=== PATIENT | female | born 1950 | race Caucasian/White ===

== ENCOUNTER 2018-06-06 21:55 | Emergency (ER) | payer MEDICARE, BC ==
--- NOTE | 2018-06-06 22:54 | EDM.PDOC ---
ED HPI GENERAL MEDICAL PROBLEM - General Chief Complaint: Upper Extremity Injury/Pain Stated Complaint: RT ARM PAIN Time Seen by Provider: 06/06/18 22:10 Source of Information: Reports: Patient History Limitations: Reports: No Limitations - History of Present Illness INITIAL COMMENTS - FREE TEXT/NARRATIVE: This pleasant 59-year-old woman was vacuuming and tripped over a vacuum and consequently traumatized her right elbow while she fell. Crepitance no difficulty flexing or extending her elbow or loss of sensation or change in sensation or hand wrist or butt presser. Chest significant past medical history of diabetes on metformin, hypertension uses verapamil, and kidney disease. 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: Reports: Cold Therapy - Related Data Allergies Allergy/AdvReac Type Severity Reaction Status Date / Time Opioids-Meperidine and Allergy Nausea Verified 06/06/18 22:06 Related varenicline [From Chantix] Allergy Delusions Verified 06/06/18 22:06 Past Medical History Musculoskeletal History: Reports: Osteoarthritis - Past Surgical History Musculoskeletal Surgical History: Reports: Knee Replacement Social & Family History - Family History Family Medical History: Noncontributory - Tobacco Use Smoking Status *Q: Former Smoker Years of Tobacco use: 48 Packs/Tins Daily: 1 Used Tobacco, but Quit: Yes Month/Year Tobacco Last Used: 09/22 Second Hand Smoke Exposure: No - Caffeine Use Caffeine Use: Reports: Coffee, Soda - Recreational Drug Use Recreational Drug Use: No Review of Systems - Review of Systems Review Of Systems: See Below Constitutional: Reports: No Symptoms Eyes: Reports: No Symptoms Ears: Reports: No Symptoms Nose: Reports: No Symptoms Mouth/Throat: Reports: No Symptoms Respiratory: Reports: No Symptoms Cardiovascular: Reports: No Symptoms GI/Abdominal: Reports: No Symptoms Genitourinary: Reports: No Symptoms, Other (H she has "kidney disease") Musculoskeletal: Reports: No Symptoms Skin: Reports: No Symptoms Neurological: Reports: No Symptoms Psychiatric: Reports: No Symptoms ED EXAM, GENERAL - Physical Exam Exam: See Below Free Text/Narrative:: Pleasant woman in minimal distress has mild soreness of right elbow Exam Limited By: No Limitations General Appearance: Alert, WD/WN, Mild Distress Eye Exam: Bilateral Eye: Normal Inspection Ears: Normal External Exam Nose: Normal Inspection Throat/Mouth: Normal Inspection Head: Atraumatic, Normocephalic Neck: Normal Inspection, Supple, Non-Tender Respiratory/Chest: No Respiratory Distress, Lungs Clear, Normal Breath Sounds, No Accessory Muscle Use, Chest Non-Tender Cardiovascular: Normal Peripheral Pulses Peripheral Pulses: 1+: Radial (L), Radial (R) (Good capillary fill right hand) GI/Abdominal: Normal Bowel Sounds, Soft, Non-Tender, No Organomegaly, No Distention (Female) Exam: Deferred Rectal (Female) Exam: Deferred Back Exam: Normal Inspection Extremities: Normal Inspection, Other (Right elbow mild tenderness olecranon no radial head tenderness no crepitus with flexion and extension, she can readily flex and extend her forearm at the elbow. With pronation shows has a slight click noted her elbow. The clinck does not cause pain in her elbow She has good dorsal flexion palmar flexion of her wrist. No compromised sensation right hand. Radial ulnar pulses brachial pulse are intact. No swelling the antecubital fossa or her no tenderness epicondyles medial or lateral) Neurological: Alert, Oriented, CN II-XII Intact, Normal Cognition, Normal Gait Psychiatric: Normal Affect, Normal Mood Skin Exam: Warm, Dry, Intact, Normal Color Lymphatic: No Adenopathy Course - Vital Signs Last Recorded V/S: Last Vital Signs Temp 36.9 C 06/06/18 22:08 Pulse 79 06/06/18 22:08 Resp 18 06/06/18 22:08 BP 146/60 H 06/06/18 22:08 Pulse Ox 96 06/06/18 22:08 - Orders/Labs/Meds Orders: Active Orders 24 hr Category Date Time Status Elbow Min 3V Rt [CR] Stat Exams 06/06/18 22:10 Taken Departure - Departure Time of Disposition: 22:45 (right elbow contusion from fall the elbow is without fracture or limitation of motion) Disposition: Home, Self-Care 01 Condition: Good Clinical Impression: Contusion of elbow, right Qualifiers: Encounter type: initial encounter Qualified Code(s): S50.01XA - Contusion of right elbow, initial encounter - Discharge Information *PRESCRIPTION DRUG MONITORING PROGRAM REVIEWED*: Not Applicable *COPY OF PRESCRIPTION DRUG MONITORING REPORT IN PATIENT SOL: Not Applicable Instructions: Elbow Contusion Referrals: Gay Baptiste NP [Primary Care Provider] - Forms: ED Department Discharge Additional Instructions: Diagnosis right elbow soft tissue contusion. No fracture Soft tissue injury noted Use ibuprofen 600 mg and Tylenol 1000 mg every 6 hours for pain or discomfort. Follow-up with her doctor in a week earlier if worse - My Orders Last 24 Hours: My Active Orders 06/06/18 22:10 Elbow Min 3V Rt [CR] Stat - Assessment/Plan Last 24 Hours: My Active Orders 06/06/18 22:10 Elbow Min 3V Rt [CR] Stat
--- NOTE | 2018-06-07 11:26 | CR ---
INDICATION: Trauma. RIGHT ELBOW: Three views of the right elbow revealed a very minimally depressed fracture through the lateral third of the joint surface of the radius. Minimal elbow joint effusion is noted. No other bone or joint abnormality was seen. IMPRESSION: Fracture through the lateral third of the proximal radial metaphysis extending through the joint surface. Only very minimal depression is noted. Report was given in person to Dr. Jarvis at 0945 hours on 06/07/2018. HYUN
--- NOTE | 2018-06-07 13:35 | PCM.SN ---
- Free Text/Narrative Note: I spoke with the patient in the phone. She had been given a report from the emergency department of a proximal radial fracture. I did review those radiographs. I can see the area in question, however I believe it is more likely vascular than her fracture. The patient states that she is still having some pain with range of motion but is not have any bruising. She was not given a splint last evening but was given an Eddie wrap. I've advised her to brain picker a simple sling and wear it for the next week. If she is not doing better by beginning of the week and I would like her to be seen on Thursday. I advised her that if she had any increase in pain and swelling to give us a call and we would certainly get her in.
== END 2018-06-06 23:05 | disposition home or self-care (01) ==
LOC: FB.ED 21:55
DX: S50.01XA Contusion of right elbow, initial encounter (principal); Z87.891 Personal history of nicotine dependence; Z88.8 Allergy status to other drugs, medicaments and biological substances; W01.198A Fall on same level from slipping, tripping and stumbling with subsequent striking against other object, initial encounter
CPT/HCPCS: 73080-RT; 99283

== ENCOUNTER 2019-01-28 19:27 | Emergency (ER) | payer MEDICARE, BC ==
[2019-01-28] MEDS ORDERED: Morphine 4 MG/ML Syringe IM STA (20:08)
[2019-01-28] MEDS ORDERED: Ondansetron 8 MG Tab.DIS PO ONE (20:18)
--- NOTE | 2019-01-28 20:18 | EDM.PDOC ---
ED HPI GENERAL MEDICAL PROBLEM - General Chief Complaint: Back Pain or Injury Stated Complaint: BACK PAIN Time Seen by Provider: 01/28/19 19:27 Source of Information: Reports: Patient, Family History Limitations: Reports: Physical Impairment - History of Present Illness INITIAL COMMENTS - FREE TEXT/NARRATIVE: 5 y.o.w.f with multiple medical issues including back pain, came to the ed due to sudden onset of worsening of her back pain as she was getting up from her chair. She has now more difficulty walking. No direct trauma. Pt is on various pain meds at home which did not help. She took an Oxycodon at 4 pm with little help. Pt is using a cane. Ni stool incontinence but urine incontinence for some time. Pt will see her back specialist in August. No N/V/D or any other acute med issues. BP 133/69 RR 18 Pulse ox 98% on RA Pulse 85 Temp 36.8 Onset Date: 01/28/19 Onset Time: 15:00 Duration: Hour(s):, Getting Worse, Intermittent Location: Reports: Back Quality: Reports: Burning, Dull, Throbbing Severity: Moderate Improves with: Reports: Rest Worsens with: Reports: Movement Context: Reports: Other - Related Data Allergies Allergy/AdvReac Type Severity Reaction Status Date / Time Opioids-Meperidine and Allergy Nausea Verified 06/06/18 22:06 Related varenicline [From Chantix] Allergy Delusions Verified 06/06/18 22:06 Home Meds: Home Meds .Estradiol 0.01% Vag Cr 1 applic VAG MOWEFR 01/28/19 [History] ALPRAZolam [Xanax] 0.5 mg PO BEDTIME PRN 01/28/19 [History] Acetaminophen/HYDROcodone [[place] 325-5 MG] 1 tab PO Q4H PRN 01/28/19 [History] Acetaminophen/oxyCODONE [Percocet 325-5 MG] 1 each PO BID PRN #6 tab 01/28/19 [ Rx] Amitriptyline HCl 75 mg PO BEDTIME 01/28/19 [History] Gabapentin [Neurontin] 900 mg PO BEDTIME 01/28/19 [History] Omeprazole 20 mg PO DAILY 01/28/19 [History] Ranitidine HCl [Ranitidine] 150 mg PO DAILY PRN 01/28/19 [History] Triamterene/Hydrochlorothiazid [Triamterene-HCTZ 37.5-25 MG] 1 cap PO DAILY [History] Verapamil HCl [Calan Sr] 240 mg PO DAILY 01/28/19 [History] atorvaSTATin [Lipitor] 10 mg PO DAILY 01/28/19 [History] metFORMIN [Glucophage] 1,000 mg PO BIDMEALS 01/28/19 [History] Past Medical History Musculoskeletal History: Reports: Osteoarthritis - Past Surgical History Musculoskeletal Surgical History: Reports: Knee Replacement Social & Family History - Family History Family Medical History: Noncontributory - Tobacco Use Smoking Status *Q: Former Smoker Used Tobacco, but Quit: No - Caffeine Use Caffeine Use: Reports: Coffee, Soda ED ROS GENERAL - Review of Systems Review Of Systems: See Below Constitutional: Reports: No Symptoms HEENT: Reports: No Symptoms Respiratory: Reports: No Symptoms Cardiovascular: Reports: No Symptoms Endocrine: Reports: No Symptoms GI/Abdominal: Reports: No Symptoms : Reports: No Symptoms Musculoskeletal: Reports: Back Pain Skin: Reports: No Symptoms Neurological: Reports: No Symptoms Psychiatric: Reports: No Symptoms Hematologic/Lymphatic: Reports: No Symptoms Immunologic: Reports: No Symptoms ED EXAM, UPPER BACK/NECK PAIN - Physical Exam Exam: See Below Exam Limited By: Physical Impairment General Appearance: Alert, WD/WN, Moderate Distress Eye Exam: Bilateral Eye: Normal Inspection Ears Exam: Normal External Exam Nose Exam: Normal Inspection, Normal Mucousa, No Blood Throat/Mouth Exam: Normal Inspection, Normal Lips, Normal Voice, No Airway Compromise Head Exam: Atraumatic, Normocephalic Neck Exam: Non-Tender, Full Range of Motion, Normal Alignment, Normal Inspection Cardiovascular/Respiratory: Regular Rate, Rhythm, No M/R/G, Normal Peripheral Pulses GI/Abdominal: Normal Bowel Sounds, Soft, Non-Tender, No Organomegaly (Female) Exam: Deferred Rectal (Female) Exam: Deferred Back Exam: Normal Inspection Extremities: Normal Inspection, Normal Range of Motion, Non-Tender Neurologic: drawer in plain loom II-XII nml As Tested, No Motor/Sensory Deficits, Alert, Oriented x 3 Psychiatric: Normal Affect, Normal Mood Skin Exam: Normal Color, Warm/Dry Lymphatic: No Adenopathy Course - Vital Signs Text/Narrative:: 5 y.o.w.f with multiple medical issues including back pain, came to the ed due to sudden onset of worsening of her back pain as she was getting up from her chair. She has now more difficulty walking. No direct trauma. Pt is on various pain meds at home which did not help. She took an Oxycodon at 4 pm with little help. Pt is using a cane. Ni stool incontinence but urine incontinence for some time. Pt will see her back specialist in August. No N/V/D or any other acute med issues. BP 133/69 RR 18 Pulse ox 98% on RA Pulse 85 Temp 36.8 PE: 68 y.o.w.f with exacerbation of lower back pain, tender lumbar spine, new Imaging: CT L spine: No acute L spine Fx, mild left sided L2 superior endplate compression Fx appears chronic, may represent a Schmorl's node. Healing sacrum fx. Grade 1 anterolisthesis L3 on L4 Impression: Chronic low back pain with exacerbation, Grade 1 anterolisthesis L3 on L4 Tx: Ice, Morphine, Percocet, Zofran Reecam: Improved Plan: D/C with grand daughter to home with instructions Last Recorded V/S: Last Vital Signs Temp 36.9 C 01/28/19 19:40 Pulse 79 01/28/19 22:20 Resp 18 01/28/19 22:20 BP 118/66 01/28/19 22:20 Pulse Ox 99 01/28/19 22:20 - Orders/Labs/Meds Orders: Active Orders 24 hr Category Date Time Status Lumbar Spine wo Cont [CT] Stat Exams 01/28/19 20:08 Taken Pelvis wo Cont [CT] Stat Exams 01/28/19 20:08 Taken Meds: Medications Discontinued Medications Generic Name Dose Route Start Last Admin Trade Name Rashard PRN Reason Stop Dose Admin Morphine Sulfate 3 mg 01/28/19 20:08 01/28/19 20:12 Morphine IM 01/28/19 20:09 3 mg ONETIME STA Administration Morphine Sulfate Confirm 01/28/19 20:11 01/28/19 21:21 Morphine Administered 01/28/19 20:12 Not Given Dose 4 mg .ROUTE .STK-MED ONE Ondansetron HCl 8 mg 01/28/19 20:18 01/28/19 20:35 Zofran Odt PO 01/28/19 20:19 8 mg ONETIME ONE Administration Oxycodone/Acetaminophen 1 tab 05/24/19 22:09 01/28/19 22:15 Percocet 325-5 Mg PO 01/28/19 22:10 1 tab ONETIME ONE Administration Departure - Departure Time of Disposition: 22:21 Disposition: Home, Self-Care 01 Condition: Good Clinical Impression: Back pain with left-sided radiculopathy - Discharge Information Prescriptions: Acetaminophen/oxyCODONE [Percocet 325-5 MG] 1 each PO BID PRN #6 tab PRN Reason: for severe pain only Referrals: Gay Baptiste, [facility] [Primary Care Provider] - Forms: ED Department Discharge Additional Instructions: Please apply ICE to the affecte area, please take te pain meds as recommeded, please f/u with your spins specialist, come back if your symptoms get worse acutely - My Orders Last 24 Hours: My Active Orders 01/28/19 20:08 Lumbar Spine wo Cont [CT] Stat Pelvis wo Cont [CT] Stat - Assessment/Plan Last 24 Hours: My Active Orders 01/28/19 20:08 Lumbar Spine wo Cont [CT] Stat Pelvis wo Cont [CT] Stat
[2019-01-28] MEDS ORDERED: Acetaminophen/oxyCODONE 325-5 MG Tab PO ONE (22:09)
== END 2019-01-28 22:30 | disposition home or self-care (01) ==
LOC: FB.ED 19:27
DX: M43.16 Spondylolisthesis, lumbar region (principal); M19.90 Unspecified osteoarthritis, unspecified site; Z79.899 Other long term (current) drug therapy; Z88.8 Allergy status to other drugs, medicaments and biological substances
CPT/HCPCS: 72131; 72192; 96372; 99283; A9270; J2270